=== PATIENT | female | born 1950 | race Caucasian/White ===

== ENCOUNTER 2019-11-26 01:06 | Observation (INO) | payer MEDICARE, MEDICAID, SELFPAY ==
[2019-11-26] VITALS (21 sets, daily range): BP systolic 77–146; BP diastolic 34–92; PULSE 50–71; RESP 13–27; TEMP 36.1–36.5; O2SAT 93–99; BMI 47.2
--- NOTE | 2019-11-26 01:21 | ED_ITS ---
Entered by Evie Howard, acting as scribe for Raúl Bolden DO HPI - URI/Sore Throat General: Chief Complaint: Nausea/Vomiting/Diarrhea Stated Complaint: FLU SYMPTOMS/HEART PT Time Seen by Provider: 11/26/19 01:17 Source: patient and family Mode of arrival: wheelchair Limitations: no limitations History of Present Illness: HPI Narrative: 69 yo f came to the er pov with family for neck pain, headache, nausea,cough, fever and vomiting. Onset was 2300 last night. Family states that she has an active cardiac history. Pt was supposed to be in [place] in the morning to make sure that that one of the valves in her heart is leaking. This is not the first time that this has happened per family. MD elicited complaint: fever, cough and sore throat Pertinent past history: other Onset (ago): day(s) (2300 last night) Consistency: constant Severity: moderate Able to tolerate fluids by mouth: No Exacerbating factors: exertion Relieving factors: nothing Context: sick contacts Associated symptoms: Reports cough, fever(s), headache(s), nausea, short of breath and vomiting; Deny diarrhea Treatments prior to arrival: none Review of Systems General: Reports: other (negative unless marked ) Const: Reports: fever Eyes: Denies: change in vision Resp: Reports: shortness of breath and productive cough GI: Reports: nausea and vomiting; Denies: diarrhea : Denies: flank pain Musc: Reports: neck pain Skin/Breast: Denies: rash Neuro: Reports: headache PFSH ED PFSH: Medical History Arrhythmia ASCVD (arteriosclerotic cardiovascular disease) Eczema Enrolled in chronic care management Fibrocystic breast Hyperlipidemia Hypertension Iron deficiency anemia Unable to read or write Surgical History History of mitral valve repair Social History Smoking and tobacco status: former smoker Quit status (tobacco): has quit using tobacco Second hand smoke exposure: No Smoking risk assessment/counseling performed?: No Physical Exam Const: COMMON NORMALS: no apparent distress GENERAL APPEARANCE: cooperative ORIENTATION/CONSCIOUSNESS: Yes awake, Yes oriented to person, Yes oriented to place and Yes oriented to time HENMT: COMMON NORMALS: normocephalic, head/scalp atraumatic, hearing grossly normal bilaterally, external ears normal, EAC's normal, TM's normal bilaterally, nasal mucous membranes and turbinates normal, moist oral mucous membranes and oropharynx normal HEAD & SCALP: normocephalic and atraumatic NOSE: nasal mucous membranes and turbinates normal EXTERNAL EAR: Yes external ears normal EXTERNAL AUDITORY CANAL: EAC's normal TYMPANIC MEMBRANE: TM's normal bilaterally Eye: COMMON NORMALS: PERRL, EOMs intact bilaterally, conjunctivae normal and no scleral icterus CONJUNCTIVA: Yes conjunctivae normal PUPIL: Yes PERRL Neck/C-Spine: COMMON NORMALS: full ROM, no lymphadenopathy, supple and no JVD Lymph: LYMPHATIC: no lymphadenopathy noted and no lymphedema noted Resp: EFFORT & INSPECTION: Yes symmetric chest movement, Yes tachypneic and Yes labored AUSCULTATION: rales on the right in the lower lung clemente and on the left in the lower lung clemente Cardio: COMMON NORMALS: no JVD, regular rate, regular rhythm and no murmurs RATE: regular rate RHYTHM: regular rhythm GI: COMMON NORMALS: soft to palpation and no hepatosplenomegaly AUSCULTATION: Yes normoactive bowel sounds PALPATION: Yes soft, No tender, No guarding and Yes no hepatosplenomegaly Extremity: COMMON NORMALS: normal to inspection, normal capillary refill, no clubbing, cyanosis or edema and no calf tenderness GENERAL: Yes edema (Trace to 1+) Neuro: SENSORIUM/ORIENTATION: Yes oriented to person, Yes oriented to place and Yes oriented to time Skin: COMMON NORMALS: no rashes or lesions noted GENERAL SKIN EXAM: no rashes or lesions noted Course ED course: Patient in acute congestive heart failure given diuretics. Recommend that she be admitted for diuresis medication adjustment. Patient has been instructed to drink increased fluid in preparation for a cardiology exam inspection he was to have a bubble study in the event she is probably overdone it she is hyponatremic and fluid overload. Vital Signs: Vital signs: Vital Signs Temperature 97.6 F 11/27/19 17:12 Pulse Rate 60 11/27/19 17:12 Respiratory Rate 18 11/27/19 17:12 Blood Pressure 106/67 11/27/19 17:12 Pulse Oximetry 98 11/27/19 17:12 MDM - URI/Sore Throat Lab Data: Labs: Lab Results 11/26/19 11/26/19 11/26/19 Range/Units 01:39 01:39 01:39 WBC 5.6 (4.0-10.0) 10^3/ uL RBC 3.75 L (4.1-5.3) 10^6/u L Hgb 10.3 L (11.5-15.3) g/dL Hct 31.8 L (37.0-47.0) % MCV 84.8 (81-99) fL MCH 27.5 L (28.0-34.0) pg MCHC 32.4 (30.0-36.0) g/dL RDW 13.4 (12.1-15.1) % Plt Count 141 (130-400) 10^3/c mm MPV 11.4 H (7.4-10.4) fL Neut % (Auto) 78.7 % Lymph % (Auto) 11.5 % [place] % (Auto) 6.1 % Eos % (Auto) 3.1 % Baso % (Auto) 0.4 % Neut # (Auto) 4.4 (1.8-7.7) 10^3/u L Lymph # (Auto) 0.6 L (0.8-4.8) 10^3/u L [place]elf[place] # (Auto) 0.3 (0.2-0.9) 10^3/u L Eos # (Auto) 0.2 (0.0-0.8) 10^3/u L Baso # (Auto) 0.0 (0.0-0.1) 10^3/u L Nucleated RBC % (a uto) 0 % Nucleated RBCs # 0.0 /100WBC Sodium 123 L (136-145) mmol/L Potassium 4.3 (3.5-5.1) mmol/L Chloride 87 L (98-107) mmol/L Carbon Dioxide 29 (22-29) mmol/L Anion Gap 11.3 (5-19) BUN 11 (8-23) mg/dL Creatinine 0.8 (0.5-0.9) mg/dL GFR Calculation 71.3 L (90-130) mL/min Glucose 128 H (65-115) mg/dL Calculated Osmolal ity 254 L (285-295) mOsm/k g Calcium 9.5 (8.5-10.5) mg/dL Total Bilirubin 0.7 (0.15-1.2) mg/dL AST 21 (0-32) U/L ALT 12 (0-33) U/L Alkaline Phosphata se 67 (35-105) IU/L Troponin T Baselin e 12 H (0-10) ng/mL NT-Pro-B Natriuret Pep 1876 H (0-125) pg/mL Total Protein 6.5 L (6.6-8.7) g/dL Albumin 4.1 (3.5-5.2) g/dL Globulin 2.4 (1.3-4.6) g/dL Lipase 19 (13-60) U/L Influenza Type A A g (Negative) POC Influenza B Ag (Negative) 11/26/19 Range/Units 02:15 WBC (4.0-10.0) 10^3/ uL RBC (4.1-5.3) 10^6/u L Hgb (11.5-15.3) g/dL Hct (37.0-47.0) % MCV (81-99) fL MCH (28.0-34.0) pg MCHC (30.0-36.0) g/dL RDW (12.1-15.1) % Plt Count (130-400) 10^3/c mm MPV (7.4-10.4) fL Neut % (Auto) % Lymph % (Auto) % [place] % (Auto) % Eos % (Auto) % Baso % (Auto) % Neut # (Auto) (1.8-7.7) 10^3/u L Lymph # (Auto) (0.8-4.8) 10^3/u L Telf[place] # (Auto) (0.2-0.9) 10^3/u L Eos # (Auto) (0.0-0.8) 10^3/u L Baso # (Auto) (0.0-0.1) 10^3/u L Nucleated RBC % (a uto) % Nucleated RBCs # /100WBC Sodium (136-145) mmol/L Potassium (3.5-5.1) mmol/L Chloride (98-107) mmol/L Carbon Dioxide (22-29) mmol/L Anion Gap (5-19) BUN (8-23) mg/dL Creatinine (0.5-0.9) mg/dL GFR Calculation (90-130) mL/min Glucose (65-115) mg/dL Calculated Osmolal ity (285-295) mOsm/k g Calcium (8.5-10.5) mg/dL Total Bilirubin (0.15-1.2) mg/dL AST (0-32) U/L ALT (0-33) U/L Alkaline Phosphata se (35-105) IU/L Troponin T Baselin e (0-10) ng/mL NT-Pro-B Natriuret Pep (0-125) pg/mL Total Protein (6.6-8.7) g/dL Albumin (3.5-5.2) g/dL Globulin (1.3-4.6) g/dL Lipase (13-60) U/L Influenza Type A A g Negative (Negative) POC Influenza B Ag Negative (Negative) Discharge Plan Discharge Patient Disposition: Admitted As Inpatient Admit Provider: Jada Lala Clinical Impression: Hyponatremia with decreased serum osmolality, COPD (chronic obstructive pulmonary disease), Congestive heart failure Condition: Stable Discharge Orders: Discharge Order (Routine); Ordered 11/27/19 Ordered By: Spike Tinajero Referrals: Mikel Pete MD [Referring] - 12/17/19 12:30 pm Discharge Diet: Cardiac Discharge Activity: Resume usual activity Patient Instructions: Hyponatremia (DC) Additional Instructions: -Continue fluid restrictions to a less than 1 L/day -If you have lightheadedness, dizziness, headache, neck pain, muscle cramps come back to the emergency room -Follow-up with primary care provider on Saturday for repeat blood work -Continue to hold lisinopril hydrochlorothiazide until seen by primary care Interventions: ED Discharge Assessment Last Done: 11/26/19 04:26 Discharge Date/Time: 11/26/19 03:55 Coding Level of Care Code ED Subacute Nurse for Chg Fwd Exam Comprehensive The documentation recorded by the Lee novoa Stephanie Lyn, accurately reflects the service I personally performed and the decisions made by Yuan martinez Curtis L, DO Nov 26, 2019 01:06
--- NOTE | 2019-11-26 01:26 | XR_ITS ---
WS: [id number] XR chest 1V portable [id number] REASON FOR EXAM: dyspnea/cough FINDINGS: The cardiac silhouette is not enlarged. There is evidence of coronary bypass changes and mi tral valve replacement. A reticular pattern is seen in both lung clemente. The pattern is similar to the previous exam exposed February 06, 2019. XR/XR chest 1V portable [id number] IMPRESSION: Coronary bypass changes and mitral valve replacement.
[2019-11-26] MEDS: ondansetron 2 mg/ML SDV 2 mL 4 MG IVP (01:55)
[2019-11-26 02:04] LABS: Basophils % 0.4 %; Eosinophils # 0.2 10^3/uL (0.0-0.8); Eosinophils % 3.1 %; Hematocrit 31.8 % (37.0-47.0); Hemoglobin 10.3 g/dL (11.5-15.3); Lymphocytes # 0.6 10^3/uL (0.8-4.8); Lymphocytes % 11.5 %; Mean Corpuscular HGB Conc 32.4 g/dL (30.0-36.0); Mean Corpuscular Hemoglobin 27.5 pg (28.0-34.0); Mean Corpuscular Volume 84.8 fL (81-99); Mean Platelet Volume 11.4 fL (7.4-10.4); Monocytes # 0.3 10^3/uL (0.2-0.9); Monocytes % 6.1 %; Neutrophils # 4.4 10^3/uL (1.8-7.7); Neutrophils % 78.7 %; Nucleated Red Blood Cells % 0 %; Platelet Count 141 10^3/cmm (130-400); Red Blood Count 3.75 10^6/uL (4.1-5.3); Red Cell Distribution Width 13.4 % (12.1-15.1); White Blood Count 5.6 10^3/uL (4.0-10.0)
[2019-11-26 02:05] LABS: Troponin(5th) Baseline 12 ng/mL (0-10)
[2019-11-26 02:13] LABS: Alanine Aminotransferase 12 U/L (0-33); Albumin Level 4.1 g/dL (3.5-5.2); Alkaline Phosphatase 67 IU/L (35-105); Anion Gap 11.3 (5-19); Aspartate Amino Transferase 21 U/L (0-32); Blood Urea Nitrogen 11 mg/dL (8-23); Calcium 9.5 mg/dL (8.5-10.5); Carbon Dioxide 29 mmol/L (22-29); Chloride 87 mmol/L (98-107); Globulin 2.4 g/dL (1.3-4.6); Glomerular Filtration Rate 71.3 mL/min (90-130); Glucose 128 mg/dL (65-115); Lipase 19 U/L (13-60); NT Pro B Type Natriuretic Pept 1876 pg/mL (0-125); Osmolality Calculated 254 mOsm/kg (285-295); Potassium 4.3 mmol/L (3.5-5.1); Sodium 123 mmol/L (136-145); Total Bilirubin 0.7 mg/dL (0.15-1.2); Total Protein 6.5 g/dL (6.6-8.7)
--- NOTE | 2019-11-26 02:41 | CTR_ITS ---
PROCEDURE INFORMATION: Exam: CT Head Without Contrast Exam date and time: 11/26/2019 2:42 AM Age: 69 years old Clinical indication: Pain; Headache not specified TECHNIQUE: Imaging protocol: Computed tomography of the head without contrast. Total DLP: 757.87 mGy-cm Radiation optimization: All CT scans at this facility use at least one of these dose optimization techniques: automated exposure control; mA and/or kV adjustment per patient size (includes targeted exams where dose is matched to clinical indication); or iterative reconstruction. COMPARISON: No relevant prior studies available. FINDINGS: Brain: Mild left occipital encephalomalacia. No intracranial hemorrhage or edema. Ventricles: No hydrocephalus. Bones/joints: No acute fracture. Sinuses: Unremarkable. No acute sinusitis. Mastoid air cells: No significant mastoid effusion. Soft tissues: Unremarkable. Vasculature: Vascular calcifications. CT/CT head wo con* [id number] IMPRESSION: No acute intracranial abnormality. Radiation Dose CTDIVOL = (mGy): DLP = 757.87 (mGy-cm)
[2019-11-26] MEDS: FUROsemide 10 mg/mL SDV 10mL 60 MG IVP (02:55)
[2019-11-26 03:06] LABS: Influenza A by IFA Negative (Negative); Influenza B by IFA Negative (Negative)
--- NOTE | 2019-11-26 03:12 | PC.NURSE ---
Assessment reviewed and verified
[2019-11-26] MEDS: metoclopramide 5 mg/mL SDV 2 mL 10 MG IVP (03:45)
[2019-11-26 03:52] LABS: Troponin 5 2HR 11.66 ng/mL (0-10)
[2019-11-26 04:14] LABS: Troponin 5 2HR Delta -0.34 ABS# (0-10)
--- NOTE | 2019-11-26 04:44 | P.HP_ITS ---
Providers/Chief Complaint Admitting Physician: Jada Lala MD Primary Care Provider: Berry Laguna DO Chief Complaint: FLU SYMPTOMS/HEART PT History of Present Illness Dariana Gillespie is a 69 year old female with a past medical history of CAD, history of what appears to be mitral valve repair after rupture in 2010, hyperlipidemia, hypertension who presented from home today with chief complaints of headache neck pain and vomiting. History is obtained by talking to the pat ient and her son to fill in the gaps in her memory. 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 Pete at [facility] and was planned to undergo radiological testing prior to the procedure at [facility] today. In anticipation of the procedure she was asked to drink at least half a gallon of water between 6 PM for the next morning. The patient's son however states that at a baseline patient tends to drink a lot of water, estimated at least a gallon a day, sometimes even more. Today she drank her usual intake plus a gallon in about 2 hours. At around 10:30 PM last evening she called her son complaining of intense neck and head headache. Her son was concerned that her symptoms sounded similar to her mitral valve rupture that occurred in 2010 and brought her into the emergency room. Upon evaluation here she did receive 60 mg of IV Lasix upon arrival. She currently denies any complaints of shortness of breath or chest pain to me. She does still complain of a headache and neck pain. Nausea is resolved. Lab testing was significant for a sodium of 123, her previously known baseline is around 140. At time of my assessment she is somewhat slow to respond to questions and does answer questions out of context. It is unclear if this is her baseline. The son states that she does have some gaps in memory but today she seemed a little different . Patient reports mild photophobia There is no history of head injury. No history of malignancy. Her glucose levels are within range. Review of Systems General: Reports: 10 or more systems reviewed and unremarkable except in HPI and below Const: Denies: fever, chills or body aches Eyes: Reports: photophobia; Denies: change in vision or blurry vision ENMT: Reports: hoarseness; Denies: throat pain, enlarged tonsils, painful swallowing or nasal congestion Card: Denies: chest pain, palpitations, irregular heart rhythm, edema, swelling of feet/ankles, lightheadedness, pre-syncope, shortness of breath on exertion or shortness of breath when lying down Resp: Denies: shortness of breath, productive cough, non-productive cough, wheezing, stridor, pain on inspiration, change in phlegm color, coughing up blood or chest congestion GI: Denies: abdominal pain, nausea, vomiting, vomiting blood, coffee grounds in vomit, difficulty swallowing, heartburn/indigestion, diarrhea, constipation, cramping, change in stool character, blood in stool or black tarry stool : Denies: flank pain, difficulty urinating, painful urination, urinary frequency, urinary urgency, urinary hesitancy or blood in urine Musc: Denies: neck pain, back pain, extremity pain, joint swelling, joint warmth or deformity Neuro: Reports: headache and behavioral changes; Denies: numbness in extremities, weakness in extremities, changes in sensation, difficulty walking, frequent falls, dizziness, vertigo, slurred speech or seizure-like activity Psych: Denies: anxiety, depression, suicidal ideation or homicidal ideation Endo: Denies: excessive urination, excessive thirst, tired all the time, cold intolerance or hot flashes Chris/Lymph: Denies: easy bruising or easy bleeding Medications/Allergies Home Medications Medication Instructions Recorded Confirmed Last Taken Type carvedilol 11/26/19 11/25/19 History evolocumab [Repatha SureClick] mg SUBCUT 11/26/19 11/23/19 History triamcinolone acetonide 1 applic TOPICAL BID 11/26/19 11/26/19 Unknown History Allergies Allergy/AdvReac Type Severity Reaction Status Date / Time codeine Allergy Intermediate Irregular Verified 11/09/19 16:31 heart rate, Hallucinations Penicillins Allergy Intermediate hives Verified 11/09/19 16:31 nausea Vomiting azithromycin Allergy Unknown Unknown Verified 11/09/19 16:31 PFSH Acute PFSH: Medical History Arrhythmia ASCVD (arteriosclerotic cardiovascular disease) Eczema Enrolled in chronic care management Fibrocystic breast Hyperlipidemia Hypertension Iron deficiency anemia Unable to read or write Surgical History History of mitral valve repair Social History Smoking and tobacco status: former smoker Quit status (tobacco): has quit using tobacco Second hand smoke exposure: No Smoking risk assessment/counseling performed?: No Vitals/I&O/Wt Last Vital Signs Temp 97.0 F L 11/26/19 04:22 Pulse 59 L 11/26/19 04:30 Resp 16 11/26/19 04:30 BP 115/59 11/26/19 04:30 Pulse Ox 95 11/26/19 04:30 Weight last 48 hrs Weight 124.738 kg Physical Exam Narrative: EXAM NARRATIVE: GEN: Awake, alert and oriented, no acute distress. Answers most wuestions appropriately, however intermittently answers out of context. HEENT: Hesitant to open her eyes stating the light bothers her, however once op ened, she is able to keep them open. CVS: S1S2 N RS: CTA B/L Abd: Soft, nt/nd , bs+ ICU REGISTERED NURSE: no focal neuro motor deficits Data : 11/26/19 05:15 11/26/19 01:39 Other data: [place] [address] CT Scan Report Signed Patient: Dariana Gillespie #: [id number] : [id number]#:[id number] Age/Sex: 69 / FADM Date: 11/26/19 Loc: ICURoom/Bed: [place] [address]: Jada Lala MD Ordering Provider/Ordering MD: Raúl Bolden DO Date of Service: 11/26/19 Procedure(s): CT head wo con* [id number] Accession Number(s): [id number] Report Number: [id number] PROCEDURE INFORMATION: Exam: CT Head Without Contrast Exam date and time: 11/26/2019 2:42 AM Age: 69 years old Clinical indication: Pain; Headache not specified TECHNIQUE: Imaging protocol: Computed tomography of the head without contrast. Total DLP: 757.87 mGy-cm Radiation optimization: All CT scans at this facility use at least one of these dose optimization techniques: automated exposure control; mA and/or kV adjustment per patient size (includes targeted exams where dose is matched to clinical indication); or iterative reconstruction. COMPARISON: No relevant prior studies available. FINDINGS: Brain: Mild left occipital encephalomalacia. No intracranial hemorrhage or edema. Ventricles: No hydrocephalus. Bones/joints: No acute fracture. Sinuses: Unremarkable. No acute sinusitis. Mastoid air cells: No significant mastoid effusion. Soft tissues: Unremarkable. Vasculature: Vascular calcifications. CT/CT head wo con* [id number] IMPRESSION: No acute intracranial abnormality. Radiation Dose CTDIVOL = (mGy): DLP = 757.87 (mGy-cm) A&P Assessment and plan (1) Hyponatremia with decreased serum osmolality: Status: Acute Code(s): E87.1 - Hypo-osmolality and hyponatremia Additional A&P Information admit to ICU # Moderate hyponatremia with mild to moderate symptoms which may be attributable to hyponatremia including any nausea vomiting forgetfulness and muscle cramps. It is unclear as to the chronicity of development of hyponatremia. Based on history may be related to polydipsia and drinking excessive amounts of free water every day, but there does appear to be some component of more acute worsening today evening . Will start 3% hypertonic saline slowly at 15ml/hr with sodium checks every hour. Goal is to correct by 4 to 6 mEq every day. Calculated serum osmolality is at 254. We will send out serum osmolality, urine osmolality and urine sodium to a certain cause of hyponatremia. Hold thiazide diuretics for now. Check TSH and random cortisol. #History of mitral valve repair, planned for replacement at [facility] in the upcoming days. Continue ASA 325mg Carvedilol dose needs to be confirmed prior to entry. Currently Hr 56-58, will hold off from ordering Lisnipril on hold given BP 90/60 Hold HCTZ given hyponatremia Clinically picture does not seem consistent with mitral valve rupture as patient denies chest pain, breathing comfortably, no acute distress. Dvt ppx: heparin Full code Attestations Medical Necessity Statement*: anticpate > 2midnight admission for management of hyponatremia Coding Level of Care Code Acute L D Rn for Simi Baldears Diagnoses Hyponatremia with decreased serum osmolality E87.1
[2019-11-26] MEDS: sodium chloride 3% 500 ML 15 ML IV (05:44)
[2019-11-26 05:48] LABS: Basophils % 0.2 %; Eosinophils # 0.1 10^3/uL (0.0-0.8); Eosinophils % 1.6 %; Hematocrit 31.3 % (37.0-47.0); Hemoglobin 10.5 g/dL (11.5-15.3); Lymphocytes # 0.6 10^3/uL (0.8-4.8); Lymphocytes % 10.8 %; Mean Corpuscular HGB Conc 33.5 g/dL (30.0-36.0); Mean Corpuscular Hemoglobin 28.2 pg (28.0-34.0); Mean Corpuscular Volume 83.9 fL (81-99); Mean Platelet Volume 11.2 fL (7.4-10.4); Monocytes # 0.4 10^3/uL (0.2-0.9); Monocytes % 6.4 %; Neutrophils # 4.6 10^3/uL (1.8-7.7); Neutrophils % 80.7 %; Nucleated Red Blood Cells % 0 %; Platelet Count 146 10^3/cmm (130-400); Red Blood Count 3.73 10^6/uL (4.1-5.3); Red Cell Distribution Width 13.3 % (12.1-15.1); White Blood Count 5.8 10^3/uL (4.0-10.0)
[2019-11-26 06:18] LABS: Anion Gap 15.7 (5-19); Blood Urea Nitrogen 12 mg/dL (8-23); Calcium 9.9 mg/dL (8.5-10.5); Carbon Dioxide 27 mmol/L (22-29); Chloride 86 mmol/L (98-107); Glomerular Filtration Rate 62.3 mL/min (90-130); Glucose 135 mg/dL (65-115); Osmolality Calculated 258 mOsm/kg (285-295); Potassium 3.7 mmol/L (3.5-5.1); Sodium 125 mmol/L (136-145)
[2019-11-26 06:28] LABS: Chol HDL Ratio 2.25 mg/dL (0.0-4.40); Cholesterol 117 mg/dL (0-200); HDL Cholesterol 52 mg/dL (60-100); LDL Cholesterol Calculated 47 mg/dL (50-129); Thyroid Stimulating Hormone 2.22 uIU/mL (0.27-4.20); Triglycerides 89 mg/dL (0-150)
[2019-11-26] MEDS: heparin 5,000 unit/mL INJ 1 mL 5000 UNIT SUBCUT ×2 (06:28→18:13)
[2019-11-26 06:31] LABS: Cortisol Random 14.14 mcg/dL (2.47-19.5)
[2019-11-26 07:04] LABS: Urine Random Sodium 75 mmol/L
[2019-11-26 07:08] LABS: Sodium 127 mmol/L (136-145)
--- NOTE | 2019-11-26 07:26 | ECG_ITS ---
Measurements Intervals Rand Rate: 53 P: 104 ID: [id number] QRS: -6 QRSD: 100 T: 5 QT: 525 QTc: 495 SINUS BRADYCARDIA PROLONGED QT INTERVAL No previous ECG available for comparison Electronically Signed On 11-26-2019 12:44:59 CDT by Shivani Torrez [email or web address]
[2019-11-26 07:59] LABS: Sodium 128 mmol/L (136-145)
[2019-11-26 08:00] LABS: Troponin 5 6HR 10.72 ng/mL (0-10)
[2019-11-26 08:01] LABS: Troponin 5 6HR Delta -1.28 ng/L (0-12)
[2019-11-26] MEDS: morphine 4 mg/mL SDV 1 mL 1 MG IVP (08:01)
[2019-11-26] MEDS: cyclobenzaprine 10 mg Tablet PO (09:00)
[2019-11-26] MEDS: aspirin 325 mg Tablet PO (09:00)
[2019-11-26] MEDS: LORazepam 2 mg/mL INJ 1 mL IVP (09:00)
[2019-11-26 09:04] LABS: Sodium 129 mmol/L (136-145)
[2019-11-26 09:43] LABS: Sodium 128 mmol/L (136-145)
[2019-11-26 10:28] LABS: Sodium 130 mmol/L (136-145)
[2019-11-26 11:35] LABS: Sodium 127 mmol/L (136-145)
[2019-11-26 12:36] LABS: Sodium 131 mmol/L (136-145)
--- NOTE | 2019-11-26 13:52 | PM.PN ---
Subjective Subjective: Interval history: This this morning patient was alert oriented x3, states that she is only here in the hospital because her son wanted to her to be here, no fevers, no chills, states that she was set to have a stent placement for her aortic valve, they told her to drink a gallon of water a day, she states that she already drinks up to 3 L of water a day at baseline, states that she is been drink consuming a lot of water During my examination, patient had severe muscle spasms, of bilateral thighs, bilateral lower extremities, was in severe pain, did not improve with inverse myotatic reflex, patient was stood out of bed, her symptoms abated, she was put back into bed, she was given muscle relaxers, and improved Currently patient sodium levels 131, she is sleeping as she received Ativan for agitation, Vitals/I&O/Wt Last Vital Signs Temp 97.0 F L 11/26/19 04:22 Pulse 53 L 11/26/19 12:00 Resp 13 11/26/19 12:00 BP 91/37 11/26/19 12:00 Pulse Ox 94 11/26/19 12:00 11/25/19 11/26/19 11/26/19 22:59 06:59 14:59 Intake Total 0 / 0 156.5 / 156.5 Output Total 950 / 950 450 / 450 Balance -950 / -950 -293.5 / -293.5 Weight last 48 hrs Weight 124.738 kg Physical Exam Const: COMMON NORMALS: no apparent distress and oriented x3 HENMT: COMMON NORMALS: normocephalic HEAD & SCALP: normocephalic Neck/C-Spine: COMMON NORMALS: no JVD Resp: COMMON NORMALS: normal respiratory effort, no retractions, no use of accessory muscles and clear to auscultation bilaterally AUSCULTATION: clear to auscultation bilaterally Cardio: COMMON NORMALS: no JVD, regular rate, regular rhythm, S1 normal heart sound and S2 normal heart sound RATE: regular rate RHYTHM: regular rhythm HEART SOUNDS: S1 normal and S2 normal GI: COMMON NORMALS: normal to inspection, nondistended, normoactive bowel sounds, soft to palpation, non-tender, no hepatosplenomegaly, no masses and no bruits PALPATION: Yes soft and Yes no hepatosplenomegaly Extremity: COMMON NORMALS: normal capillary refill, no clubbing, cyanosis or edema, no calf tenderness and no pedal edema Neuro: COMMON NORMALS: oriented x3 Psych: COMMON NORMALS: mental status grossly normal Data : 11/26/19 05:15 11/26/19 12:03 A&P Assessment and plan (1) Hyponatremia with decreased serum osmolality: Status: Acute Code(s): E87.1 - Hypo-osmolality and hyponatremia Additional A&P Information Will de-escalate out of ICU U # Moderate hyponatremia with mild to moderate symptoms which may be attributable to hyponatremia including any nausea vomiting forgetfulness and muscle cramps. Discontinue hypertonic saline, fluid restrictions, last sodium level 131 Hold thiazide diuretics for now. Check TSH and random cortisol. #History of mitral valve repair, planned for replacement at [place] in today by Dr. Pete, will notify Continue ASA 325mg Carvedilol dose needs to be confirmed prior to entry. Currently Hr 56-58, will hold off from ordering Lisnipril on hold given BP 90/60 Hold HCTZ given hyponatremia Dvt ppx: heparin Full code Attestations Medical Necessity Statement*: Patient requires continued hospitalization for hyponatremia Coding Level of Care Code Acute Tow Car Driver for Simi Balderas Diagnoses Hyponatremia with decreased serum osmolality E87.1
[2019-11-26 14:43] LABS: Sodium 130 mmol/L (136-145)
[2019-11-26 18:10] LABS: Sodium 131 mmol/L (136-145)
[2019-11-26 21:02] LABS: Sodium 132 mmol/L (136-145)
[2019-11-27] VITALS (12 sets, daily range): BP systolic 97–125; BP diastolic 51–71; PULSE 57–83; RESP 15–25; TEMP 36.4–36.8; O2SAT 92–98
[2019-11-27 00:50] LABS: Sodium 132 mmol/L (136-145)
[2019-11-27 04:45] LABS: Basophils % 0.6 %; Eosinophils # 0.1 10^3/uL (0.0-0.8); Eosinophils % 3.8 %; Hematocrit 31.4 % (37.0-47.0); Hemoglobin 10.4 g/dL (11.5-15.3); Lymphocytes # 0.8 10^3/uL (0.8-4.8); Lymphocytes % 23.5 %; Mean Corpuscular HGB Conc 33.1 g/dL (30.0-36.0); Mean Corpuscular Volume 84.6 fL (81-99); Mean Platelet Volume 11.6 fL (7.4-10.4); Monocytes # 0.4 10^3/uL (0.2-0.9); Neutrophils # 2.1 10^3/uL (1.8-7.7); Neutrophils % 60.8 %; Nucleated Red Blood Cells % 0 %; Platelet Count 133 10^3/cmm (130-400); Red Blood Count 3.71 10^6/uL (4.1-5.3); Red Cell Distribution Width 13.4 % (12.1-15.1); White Blood Count 3.4 10^3/uL (4.0-10.0)
[2019-11-27 05:02] LABS: Alanine Aminotransferase 9 U/L (0-33); Albumin Level 3.8 g/dL (3.5-5.2); Alkaline Phosphatase 62 IU/L (35-105); Anion Gap 11.4 (5-19); Aspartate Amino Transferase 20 U/L (0-32); Blood Urea Nitrogen 8 mg/dL (8-23); Calcium 9.3 mg/dL (8.5-10.5); Carbon Dioxide 33 mmol/L (22-29); Chloride 92 mmol/L (98-107); Globulin 2.6 g/dL (1.3-4.6); Glomerular Filtration Rate 71.3 mL/min (90-130); Glucose 93 mg/dL (65-115); Magnesium 2.3 mg/dL (1.7-2.3); Osmolality Calculated 272 mOsm/kg (285-295); Phosphorus 3.3 mg/dL (2.5-4.5); Potassium 3.4 mmol/L (3.5-5.1); Sodium 133 mmol/L (136-145); Total Bilirubin 0.5 mg/dL (0.15-1.2); Total Protein 6.4 g/dL (6.6-8.7)
[2019-11-27] MEDS: heparin 5,000 unit/mL INJ 1 mL 5000 UNIT SUBCUT (06:09)
[2019-11-27] MEDS: aspirin 325 mg Tablet PO (09:55)
--- NOTE | 2019-11-27 11:15 | PM.DCS ---
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 Patient is being evaluated for mitral valve replacement with her physical security specialist in [facility], she was told by the physical security specialist to drink at least half a gallon of water 24 hours before her procedure, patient states that she already drinks more than a gallon of water a day. In the emergency room patient was found to have hyponatremia, sodium of 123, received Lasix, was put on hypertonic saline, patient sodium corrected to 128. Hypertonic saline was stopped, patient was started on fluid restrictions to less than 1000 cc/day, her sodium improved to 133. Patient remained asymptomatic, no more muscle cramps, was ambulating around her room, taking a shower, had no significant complaints. Her sodium was rechecked in the afternoon and it was 133. Patient was instructed that she should restrict her fluid intake to less than 1000 cc/day, I will continue to hold her lisinopril and hydrochlorothiazide until blood work can be done on Saturday. Patient was advised to follow-up with Dr. Pete early next week. Physical Exam Const: COMMON NORMALS: no apparent distress and oriented x3 HENMT: COMMON NORMALS: normocephalic HEAD & SCALP: normocephalic Neck/C-Spine: COMMON NORMALS: no JVD Resp: COMMON NORMALS: normal respiratory effort, no retractions, no use of accessory muscles and clear to auscultation bilaterally AUSCULTATION: clear to auscultation bilaterally Cardio: COMMON NORMALS: no JVD, regular rate, regular rhythm, S1 normal heart sound and S2 normal heart sound RATE: regular rate RHYTHM: regular rhythm HEART SOUNDS: S1 normal and S2 normal GI: COMMON NORMALS: normal to inspection, nondistended, normoactive bowel sounds, soft to palpation, non-tender, no hepatosplenomegaly, no masses and no bruits PALPATION: Yes soft and Yes no hepatosplenomegaly Extremity: COMMON NORMALS: normal capillary refill, no clubbing, cyanosis or edema, no calf tenderness and no pedal edema Neuro: COMMON NORMALS: oriented x3 Psych: COMMON NORMALS: mental status grossly normal Discharge Data Data Completed and Pending: Completed Studies During Hospitalization Category Date Time Status CT head wo con* [id number] Stat Cat Scan 11/26/19 02:41 Completed XR chest 1V jenn ble [id number] Stat Exams 11/26/19 01:26 Completed Pending at discharge Category Date Time Status Complete Blood Co unt w/Auto AM LABS Lab 11/28/19 04:00 Ordered Complete Blood Co unt w/Auto AM LABS Lab 11/29/19 04:00 Ordered Comprehensive Met abolic Panel AM LA BS Lab 11/28/19 04:00 Ordered Comprehensive Met abolic Panel AM LA BS Lab 11/29/19 04:00 Ordered Comprehensive Met abolic Panel Stat Lab 11/27/19 15:00 Ordered Magnesium AM LABS Lab 11/28/19 04:00 Ordered Magnesium AM LABS Lab 11/29/19 04:00 Ordered Osmolality Serum Routine Lab 11/26/19 05:15 Received Osmolality Urine Routine Lab 11/26/19 05:19 Received Phosphorus AM LAB S Lab 11/28/19 04:00 Ordered Phosphorus AM LAB S Lab 11/29/19 04:00 Ordered Labs from last 24 hours 11/27/19 11/27/19 11/27/19 04:17 04:17 00:28 WBC 3.4 L RBC 3.71 L Hgb 10.4 L Hct 31.4 L MCV 84.6 MCH 28.0 MCHC 33.1 RDW 13.4 Plt Count 133 MPV 11.6 H Neut % (Auto) 60.8 Lymph % (Auto) 23.5 [place] % (Auto) 11.0 Eos % (Auto) 3.8 Baso % (Auto) 0.6 Neut # (Auto) 2.1 Lymph # (Auto) 0.8 [place] # (Auto) 0.4 Eos # (Auto) 0.1 Baso # (Auto) 0.0 Nucleated RBC % (a uto) 0 Nucleated RBCs # 0.0 Sodium 133 L 132 L Potassium 3.4 L Chloride 92 L Carbon Dioxide 33 H Anion Gap 11.4 BUN 8 Creatinine 0.8 GFR Calculation 71.3 L Glucose 93 Calculated Osmolal ity 272 L Calcium 9.3 Phosphorus 3.3 Magnesium 2.3 Total Bilirubin 0.5 AST 20 ALT 9 Alkaline Phosphata se 62 Total Protein 6.4 L Albumin 3.8 Globulin 2.6 11/26/19 11/26/19 11/26/19 20:40 17:22 13:22 WBC RBC Hgb Hct MCV MCH MCHC RDW Plt Count MPV Neut % (Auto) Lymph % (Auto) [place] % (Auto) Eos % (Auto) Baso % (Auto) Neut # (Auto) Lymph # (Auto) [place] # (Auto) Eos # (Auto) Baso # (Auto) Nucleated RBC % (a uto) Nucleated RBCs # Sodium 132 L 131 L 130 L Potassium Chloride Carbon Dioxide Anion Gap BUN Creatinine GFR Calculation Glucose Calculated Osmolal ity Calcium Phosphorus Magnesium Total Bilirubin AST ALT Alkaline Phosphata se Total Protein Albumin Globulin 11/26/19 11/26/19 12:03 11:11 WBC RBC Hgb Hct MCV MCH MCHC RDW Plt Count MPV Neut % (Auto) Lymph % (Auto) [place] % (Auto) Eos % (Auto) Baso % (Auto) Neut # (Auto) Lymph # (Auto) [place] # (Auto) Eos # (Auto) Baso # (Auto) Nucleated RBC % (a uto) Nucleated RBCs # Sodium 131 L 127 L Potassium Chloride Carbon Dioxide Anion Gap BUN Creatinine GFR Calculation Glucose Calculated Osmolal ity Calcium Phosphorus Magnesium Total Bilirubin AST ALT Alkaline Phosphata se Total Protein Albumin Globulin Vitals: Last Vital Signs Temp 98.3 F 11/27/19 10:22 Pulse 80 11/27/19 10:22 Resp 20 H 11/27/19 10:22 BP 125/71 11/27/19 10:22 Pulse Ox 96 11/27/19 10:22 Discharge Plan Discharge Patient Disposition: Home, Self-Care Condition: Stable Prescriptions: Continued cholecalciferol (vitamin D3) 400 unit capsule 400 unit PO BID RF: 0 cyanocobalamin (vitamin B-12) 1,000 mcg capsule 1,000 mcg PO DAILY RF: 0 magnesium oxide 250 mg magnesium tablet 250 mg PO DAILY RF: 0 multivitamin Tablet 1 tab PO DAILY RF: 0 nitroglycerin 0.4 mg tablet, sublingual 0.4 mg SUBLINGUAL Q5M PRN (Reason: chest pain) RF: 0 aspirin 325 mg tablet 325 mg PO DAILY RF: 0 Lactobacillus acidophilus [Acidophilus] Capsule 100 mmu cells PO DAILY RF: 0 ferrous sulfate 325 mg (65 mg iron) tablet 325 mg PO DAILY RF: 0 ezetimibe [Zetia] 10 mg tablet 10 mg PO DAILY RF: 0 lactulose 10 gram/15 mL (15 mL) solution 15 ml PO BID PRNRF: 0 triamcinolone acetonide 0.1 % cream 1 applic TOPICAL BID RF: 0 carvedilol 12.5 mg tablet RF: 0 Repatha SureClick 140 mg/mL pen injector SUBCUT RF: 0 Held lisinopril-hydrochlorothiazide 20-12.5 mg tablet 1 tab PO DAILY RF: 0 Hold Instructions: Resume on 12/08/19. Hold until seen by primary care Discontinued naproxen 500 mg tablet 500 mg PO BID PRNRF: 0 Discharge Orders: Discharge Order (Routine); Ordered 11/27/19 Ordered By: Spike Tinajero Other Ambulatory Orders: Comprehensive Metabolic Panel (Routine) Timeframe: 3 Days Facility: [facility] - Location: Lab - Main Lab Ordered By: Spike Tinajero Referrals: Mikel Pete MD [Referring] - 12/17/19 12:30 pm Discharge Diet: Cardiac Discharge Activity: Resume usual activity Patient Instructions: Hyponatremia (DC) Activity Restrictions/Additional Instructions: -Continue fluid restrictions to a less than 1 L/day -If you have lightheadedness, dizziness, headache, neck pain, muscle cramps come back to the emergency room -Follow-up with primary care provider on Saturday for repeat blood work -Continue to hold lisinopril hydrochlorothiazide until seen by primary care Discharge Attestations Time Spent in Discharge Care*: less than 30 min Quality Metrics Clinical Quality Measures During this hospital stay, did patient experience: None Coding Level of Care Code Acute Mental Health Aides Teacher for Chg Fwd Exam Comprehensive Diagnoses Hyponatremia with decreased serum osmolality E87.1
[2019-11-27 12:31] LABS: Osmolality Urine 191 mOsm/kg (50-1200)
[2019-11-27 12:31] LABS: Osmolality Serum 264 mOsm/kg (278-305)
[2019-11-27 14:58] LABS: Alanine Aminotransferase 12 U/L (0-33); Albumin Level 4.2 g/dL (3.5-5.2); Alkaline Phosphatase 66 IU/L (35-105); Anion Gap 14.7 (5-19); Aspartate Amino Transferase 22 U/L (0-32); Blood Urea Nitrogen 13 mg/dL (8-23); Calcium 9.8 mg/dL (8.5-10.5); Carbon Dioxide 31 mmol/L (22-29); Chloride 91 mmol/L (98-107); Globulin 2.6 g/dL (1.3-4.6); Glomerular Filtration Rate 49.4 mL/min (90-130); Glucose 107 mg/dL (65-115); Osmolality Calculated 273 mOsm/kg (285-295); Potassium 3.7 mmol/L (3.5-5.1); Sodium 133 mmol/L (136-145); Total Bilirubin 0.4 mg/dL (0.15-1.2); Total Protein 6.8 g/dL (6.6-8.7)
== END 2019-11-27 16:36 | disposition home or self-care (01) ==
LOC: ER 03:23 → ICU 03:37 → MEDSURG 11-27 11:27 → ICU 11-27 14:33
PROVIDERS: Admitting Provider Student in an Organized Health Care Education/Training Program; Emergency Provider Family Medicine; Family Provider Family Medicine; PCP Family Medicine; Visit Provider Family Medicine
DX: E87.1 Hypo-osmolality and hyponatremia (principal); I25.10 Atherosclerotic heart disease of native coronary artery without angina pectoris; Z95.2 Presence of prosthetic heart valve; E78.5 Hyperlipidemia, unspecified; Z87.891 Personal history of nicotine dependence; J44.9 Chronic obstructive pulmonary disease, unspecified; I11.0 Hypertensive heart disease with heart failure; I50.9 Heart failure, unspecified
CPT/HCPCS: 12345; 36415; 70450; 71045; 80048; 80053; 80061; 82533; 83690; 83735; 83880; 83930; 83935; 84100; 84295; 84300; 84443; 84484; 85025; 87804; 93005; 93010; 96360; 96361; 96372; 96374; 96375; 99282; 99285; G0378; J1644; J1940; J2060; J2270; J2405; J2765; J7131

== ENCOUNTER → 2019-12-01 10:07 | Outpatient (BNVA) | payer MEDICARE, MEDICAID, SELFPAY | PROVIDERS: Family Provider Family Medicine; PCP Family Medicine; Visit Provider Nurse Practitioner Family | DX: E87.1 Hypo-osmolality and hyponatremia (principal); R73.9 Hyperglycemia, unspecified; L23.9 Allergic contact dermatitis, unspecified cause | CPT/HCPCS: 80053 ==

== ENCOUNTER → 2019-12-22 11:34 | Outpatient (BNVA) | payer MEDICARE, MEDICAID, SELFPAY | PROVIDERS: Family Provider Family Medicine; PCP Family Medicine; Visit Provider Nurse Practitioner Family | DX: R73.09 Other abnormal glucose (principal); Z68.33 Body mass index [BMI] 33.0-33.9, adult; R06.02 Shortness of breath | CPT/HCPCS: 83036 ==

== ENCOUNTER → 2020-06-08 15:35 | Outpatient (BNVA) | payer MEDICARE, MEDICAID, SELFPAY | PROVIDERS: Family Provider Family Medicine; PCP Family Medicine; Visit Provider Nurse Practitioner Family | DX: Z79.01 Long term (current) use of anticoagulants (principal) | CPT/HCPCS: 36416; 85610 ==

== ENCOUNTER → 2020-06-20 08:54 | Outpatient (BNVA) | payer MEDICARE, MEDICAID, SELFPAY | PROVIDERS: Family Provider Family Medicine; PCP Family Medicine; Visit Provider Nurse Practitioner Family | DX: Z79.01 Long term (current) use of anticoagulants (principal) | CPT/HCPCS: 85610 ==

== ENCOUNTER → 2020-06-29 09:34 | Outpatient (BNVA) | payer MEDICARE, MEDICAID, SELFPAY | PROVIDERS: Family Provider Family Medicine; PCP Family Medicine; Visit Provider Internal Medicine Cardiovascular Disease | DX: I50.9 Heart failure, unspecified (principal) | CPT/HCPCS: 80048 ==

== ENCOUNTER → 2020-07-04 09:25 | Outpatient (BNVA) | payer MEDICARE, MEDICAID, SELFPAY | PROVIDERS: Family Provider Family Medicine; PCP Family Medicine; Visit Provider Nurse Practitioner Family | DX: I50.9 Heart failure, unspecified (principal) | CPT/HCPCS: 85610 ==

== ENCOUNTER → 2020-07-12 08:16 | Outpatient (BNVA) | payer MEDICARE, MEDICAID, SELFPAY | PROVIDERS: Family Provider Family Medicine; PCP Family Medicine; Visit Provider Family Medicine | DX: Z79.01 Long term (current) use of anticoagulants (principal) | CPT/HCPCS: 85610 ==

== ENCOUNTER → 2020-07-20 08:22 | Outpatient (BNVA) | payer MEDICARE, MEDICAID, SELFPAY | PROVIDERS: Family Provider Family Medicine; PCP Family Medicine; Visit Provider Nurse Practitioner Family | DX: Z79.01 Long term (current) use of anticoagulants (principal) | CPT/HCPCS: 85610 ==

== ENCOUNTER → 2020-07-27 09:31 | Outpatient (BNVA) | payer MEDICARE, MEDICAID, SELFPAY | PROVIDERS: Family Provider Family Medicine; PCP Family Medicine; Visit Provider Nurse Practitioner Family | DX: Z79.01 Long term (current) use of anticoagulants (principal) | CPT/HCPCS: 85610 ==

== ENCOUNTER 2022-12-10 14:46 | Emergency (ER) | payer MEDICARE, MEDICAID, SELFPAY ==
[2022-12-10 15:05] VITALS: BP 93/57; PULSE 65; RESP 16; TEMP 36.6; O2SAT 97; BMI 26.9
[2022-12-10 16:04] LABS: Basophils % 0.3 %; Eosinophils % 0.3 %; Hematocrit 40.6 % (37.0-47.0); Hemoglobin 13.6 g/dL (11.5-15.3); Lymphocytes # 1.1 10^3/uL (0.8-4.8); Lymphocytes % 30.3 %; Mean Corpuscular HGB Conc 33.5 g/dL (30.0-36.0); Mean Corpuscular Hemoglobin 29.5 pg (28.0-34.0); Mean Corpuscular Volume 88.1 fl (81-99); Mean Platelet Volume 10.7 fL (7.4-10.4); Monocytes # 0.5 10^3/uL (0.2-0.9); Monocytes % 13.2 %; Neutrophils # 1.98 10^3/uL (1.8-7.7); Neutrophils % 55.6 %; Nucleated Red Blood Cells % 0 %; Platelet Count 131 10^3/cmm (130-400); Red Blood Count 4.61 10^6/uL (4.1-5.3); Red Cell Distribution Width 12.4 % (12.1-15.1); White Blood Count 3.6 10^3/uL (4.0-10.0)
--- NOTE | 2022-12-10 16:12 | ED_ITS ---
HPI - Weakness General: Chief complaint: Weakness Stated complaint: covid+ and possible UTI Time Seen by Provider: 12/10/22 15:59 History of Present Illness: Patient was brought back to room is about to go see her and she left AMA nursing staff attempted to convince her otherwise but she refused she refused to sign out AMA I did not actually see or talk to her. Patient reports she had tested positive for COVID PFS ED PFSH: Medical History Arrhythmia ASCVD (arteriosclerotic cardiovascular disease) Eczema Enrolled in chronic care management Fibrocystic breast Hyperlipidemia Hypertension Iron deficiency anemia Unable to read or write Surgical History (System 06/21/20 @ 15:10 by [place]) History of mitral valve repair Social History (System 06/21/20 @ 15:10 by [place]) Smoking and tobacco status: former smoker Quit status (tobacco): has quit using tobacco Second hand smoke exposure: No Smoking risk assessment/counseling performed?: No Course Vital Signs: Vital signs: Vital Signs Temperature 97.9 F 12/10/22 15:05 Pulse Rate 65 12/10/22 15:05 Respiratory Rate 16 12/10/22 15:05 Blood Pressure 93/57 12/10/22 15:05 Pulse Oximetry 97 12/10/22 15:05 MDM - Weakness Medical Decision Making Labs were ordered from triage these were reviewed no critical findings noted. Patient left without being seen no diagnosis made as it did not not able to get history or examine her Lab Data I reviewed the patient's lab results. 12/10/22 15:40 12/10/22 15:40 Laboratory Results WBC 3.6 10^3/uL (4.0-10.0) L 12/10/22 15:40 RBC 4.61 10^6/uL (4.1-5.3) 12/10/22 15:40 Hgb 13.6 g/dL (11.5-15.3) 12/10/22 15:40 Hct 40.6 % (37.0-47.0) 12/10/22 15:40 MCV 88.1 fl (81-99) 12/10/22 15:40 MCH 29.5 pg (28.0-34.0) 12/10/22 15:40 MCHC 33.5 g/dL (30.0-36.0) 12/10/22 15:40 RDW 12.4 % (12.1-15.1) 12/10/22 15:40 Plt Count 131 10^3/cmm (130-400) 12/10/22 15:40 MPV 10.7 fL (7.4-10.4) H 12/10/22 15:40 Neut % (Auto) 55.6 % 12/10/22 15:40 Lymph % (Auto) 30.3 % 12/10/22 15:40 [place] % (Auto) 13.2 % 12/10/22 15:40 Eos % (Auto) 0.3 % 12/10/22 15:40 Baso % (Auto) 0.3 % 12/10/22 15:40 Neut # (Auto) 1.98 10^3/uL (1.8-7.7) 12/10/22 15:40 Lymph # (Auto) 1.1 10^3/uL (0.8-4.8) 12/10/22 15:40 [place] # (Auto) 0.5 10^3/uL (0.2-0.9) 12/10/22 15:40 Eos # (Auto) 0.0 10^3/uL (0.0-0.8) 12/10/22 15:40 Baso # (Auto) 0.0 10^3/uL (0.0-0.1) 12/10/22 15:40 Nucleated RBC % (auto) 0 % 12/10/22 15:40 Nucleated RBCs # 0.0 /100WBC 12/10/22 15:40 Discharge Plan Discharge Patient Disposition: Left Against Medical Advice Clinical Impression: COVID-19 Prescriptions: No Action cholecalciferol (vitamin D3) 400 unit capsule 400 unit PO BID cyanocobalamin (vitamin B-12) 1,000 mcg capsule 1,000 mcg PO DAILY magnesium oxide 250 mg magnesium tablet 250 mg PO DAILY multivitamin Tablet 1 tab PO DAILY nitroglycerin 0.4 mg tablet, sublingual 0.4 mg SUBLINGUAL Q5M PRN (Reason: chest pain) aspirin 325 mg tablet 325 mg PO DAILY Lactobacillus acidophilus [Acidophilus] Capsule 100 mmu cells PO DAILY ferrous sulfate 325 mg (65 mg iron) tablet 325 mg PO DAILY ezetimibe [Zetia] 10 mg tablet 10 mg PO DAILY lactulose 10 gram/15 mL (15 mL) solution 10 gm PO BID Qty: 1800 3RF lisinopril-hydrochlorothiazide 20-12.5 mg tablet 1 tab PO DAILY Qty: 90 0RF Hold Instructions: Resume on 12/08/19. Hold until seen by primary care triamcinolone acetonide 0.1 % cream 1 applic TOPICAL BID Repatha SureClick 140 mg/mL pen injector SUBCUT Referrals: Berry Laguna DO [Primary Care Provider] - Coding Level of Care Code ED Voice Systems Engineer for Chg Andrey
[2022-12-10 16:19] LABS: Alanine Aminotransferase 26 U/L (0-33); Albumin Level 4.2 g/dL (3.5-5.2); Alkaline Phosphatase 62 U/L (35-105); Blood Urea Nitrogen 29 mg/dL (8-23); Calcium 9.3 mg/dL (8.5-10.5); Carbon Dioxide 26 mmol/L (22-29); Chloride 97 mmol/L (98-107); Glucose 97 mg/dL (65-115); Osmolality Calculated 284 mOsm/kg (285-295); Sodium 134 mmol/L (136-145); Total Bilirubin 0.4 mg/dL (0.15-1.2); Total Protein 6.2 g/dL (6.6-8.7)
[2022-12-10 16:23] LABS: Anion Gap 15.3 (5-19); Aspartate Amino Transferase 40 U/L (0-32); Potassium 4.3 mmol/L (3.5-5.1)
== END 2022-12-10 16:07 | disposition left against medical advice (07) ==
PROVIDERS: Emergency Provider Family Medicine; PCP Family Medicine
DX: U07.1 COVID-19 (principal); Z53.21 Procedure and treatment not carried out due to patient leaving prior to being seen by health care provider; Z79.82 Long term (current) use of aspirin; E78.5 Hyperlipidemia, unspecified; I10 Essential (primary) hypertension; Z87.891 Personal history of nicotine dependence
CPT/HCPCS: 36415; 80053; 85025; 99283

== ENCOUNTER 2023-01-15 23:07 | Emergency (ER) | payer MEDICARE, MEDICAID, SELFPAY ==
[2023-01-15 23:08] VITALS: BMI 25.0
[2023-01-15 23:11] VITALS: BP 129/69; PULSE 71; RESP 18; TEMP 36.8; O2SAT 100
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
== END 2023-01-16 00:27 | disposition home or self-care (01) ==
PROVIDERS: Emergency Provider Emergency Medicine; PCP Family Medicine
DX: S90.01XA Contusion of right ankle, initial encounter (principal); Z79.82 Long term (current) use of aspirin; E78.5 Hyperlipidemia, unspecified; I10 Essential (primary) hypertension; Z87.891 Personal history of nicotine dependence; V89.2XXA Person injured in unspecified motor-vehicle accident, traffic, initial encounter
CPT/HCPCS: 71045; 72072; 73610; 99284

== ENCOUNTER 2023-10-29 11:31 | Emergency (ER) | payer MEDICARE, MEDICAID, SELFPAY ==
--- NOTE | 2023-10-29 11:34 | XRR_ITS ---
PROCEDURE INFORMATION: Exam: XR Chest Exam date and time: 10/29/2023 11:53 AM Age: 73 years old Clinical indication: Pain; Angina pectoris; Additional info: Chest pain TECHNIQUE: Imaging protocol: Radiologic exam of the chest. Views: 1 view. COMPARISON: CR XR chest 1V portable [id number] 01/15/2023 11:26 PM FINDINGS: Lungs: Unremarkable. No consolidation. Pleural spaces: Unremarkable. No pleural effusion. No pneumothorax. Heart/Mediastinum: Valve replacement. Bones/joints: Status post median sternotomy. XR/XR chest 1V portable [id number] IMPRESSION: No acute findings.
--- NOTE | 2023-10-29 11:35 | ECG_ITS ---
[facility] Test Date: 2023-10-29 Pat Name: Dariana Gillespie Department: Room: Gender: Female Client Services Vice President: : 1950 Requested By: Susy Suggs Order Number: [id number] Casie MD: Esteban Lozano M.D. Measurements Intervals [place] Rate: 63 P: 69 UT: 221 QRS: 74 QRSD: 92 T: 30 QT: 444 QTc: 456 Interpretive Statements SINUS RHYTHM WITH FIRST DEGREE AV BLOCK WITH OCCASIONAL SUPRAVENTRICULAR PREMATURE COMPLEXES Compared to ECG 11/26/2019 08:16:51 First degree AV block now present Sinus bradycardia no longer present Prolonged QT interval no longer present Electronically Signed On 10-29-2023 11:50:50 PIPE CLEANING MACHINE OPERATOR by Esteban Lozano M.D. [id number]
[2023-10-29 11:41] VITALS: BP 136/74; PULSE 73; RESP 16; TEMP 36.5; O2SAT 99; BMI 29.1
[2023-10-29 12:06] LABS: Basophils % 0.3 %; Eosinophils # 0.1 10^3/uL (0.0-0.8); Eosinophils % 0.7 %; Hematocrit 40.1 % (36-47); Lymphocytes # 1.1 10^3/uL (0.8-4.8); Lymphocytes % 15.1 %; Mean Corpuscular HGB Conc 34.2 g/dL (30-55); Mean Corpuscular Hemoglobin 30.1 pg (27-33); Mean Corpuscular Volume 88.1 fl (85-98); Mean Platelet Volume 9.9 fL (7.4-10.4); Monocytes # 0.5 10^3/uL (0.2-0.9); Monocytes % 6.8 %; Neutrophils # 5.46 10^3/uL (1.8-7.7); Neutrophils % 76.8 %; Nucleated Red Blood Cells % 0 %; Platelet Count 198 10^3/cmm (157-399); Red Blood Count 4.55 10^6/uL (3.85-5.65)
[2023-10-29 12:29] LABS: Troponin(5th) Baseline 14 ng/L (0-10)
[2023-10-29 12:39] LABS: Alanine Aminotransferase 12 U/L (0-33); Albumin Level 4.4 g/dL (3.5-5.2); Alkaline Phosphatase 80 U/L (35-105); Anion Gap 17.3 (5-19); Aspartate Amino Transferase 19 U/L (0-32); Blood Urea Nitrogen 18 mg/dL (8-23); Calcium 9.5 mg/dL (8.5-10.5); Carbon Dioxide 25 mmol/L (22-29); Chloride 98 mmol/L (98-107); Globulin 2.4 g/dL (1.3-4.6); Glucose 80 mg/dL (65-115); Osmolality Calculated 283 mOsm/kg (285-295); Potassium 4.3 mmol/L (3.5-5.1); Sodium 136 mmol/L (136-145); Total Bilirubin 0.7 mg/dL (0.15-1.2); Total Protein 6.8 g/dL (6.6-8.7)
--- NOTE | 2023-10-29 13:34 | ECG_ITS ---
[facility] Test Date: 2023-10-29 Pat Name: Dariana Gillespie Department: Room: Gender: Female Tube Teller: : 1950 Requested By: Susy Suggs Order Number: [id number] Casie MD: Esteban Lozano M.D. Measurements Intervals [place] Rate: 98 P: 0 IA: 0 QRS: 74 QRSD: 92 T: 27 QT: 393 QTc: 503 Interpretive Statements ATRIAL FIBRILLATION NONSPECIFIC T-WAVE ABNORMALITY Compared to ECG 10/29/2023 11:35:01 T-wave abnormality now present Sinus rhythm no longer present First degree AV block no longer present Electronically Signed On 10-29-2023 13:31:59 ORE STORAGE DRIER by Esteban Lozano M.D. [id number]
--- NOTE | 2023-10-29 13:44 | ED_ITS ---
HPI - Headache 2 General: Chief Complaint: Headache Stated Complaint: chest pain Time Seen by Provider: 10/29/23 13:21 [facility] ED 2 PFSH: Medical History (Updated 01/24/23 @ 00:00 by PERI Davila) Hypertension Enrolled in chronic care management Iron deficiency anemia Unable to read or write Hyperlipidemia ASCVD (arteriosclerotic cardiovascular disease) Arrhythmia Eczema Fibrocystic breast Surgical History History of mitral valve repair Social History Smoking and tobacco/nicotine status: former use of tobacco/nicotine Quit status (tobacco/nicotine): has quit using Second hand smoke exposure: No Course 2 Vital Signs: Vital signs: Vital Signs Temperature 97.7 F 10/29/23 11:41 Pulse Rate 73 10/29/23 11:41 Respiratory Rate 16 10/29/23 11:41 Blood Pressure 136/74 10/29/23 11:41 Pulse Oximetry 99 10/29/23 11:41 Oxygen Delivery Me thod Room Air 10/29/23 11:41 MDM - Headache Lab Data 10/29/23 11:59 10/29/23 11:59 Radiology Impressions Chest X-Ray 10/29/23 11:34 IMPRESSION: No acute findings. Laboratory Results WBC 7.10 10^3/uL (3.29-11.43) 10/29/23 11:59 RBC 4.55 10^6/uL (3.85-5.65) 10/29/23 11:59 Hgb 13.70 g/dL (11.27-16.99) 10/29/23 11:59 Hct 40.1 % (36-47) 10/29/23 11:59 MCV 88.1 fl (85-98) 10/29/23 11:59 MCH 30.1 pg (27-33) 10/29/23 11:59 MCHC 34.2 g/dL (30-55) 10/29/23 11:59 RDW 12.0 % (12.1-15.1) L 10/29/23 11:59 Plt Count 198 10^3/cmm (157-399) 10/29/23 11:59 MPV 9.9 fL (7.4-10.4) 10/29/23 11:59 Neut % (Auto) 76.8 % 10/29/23 11:59 Lymph % (Auto) 15.1 % 10/29/23 11:59 [place] % (Auto) 6.8 % 10/29/23 11:59 Eos % (Auto) 0.7 % 10/29/23 11:59 Baso % (Auto) 0.3 % 10/29/23 11:59 Neut # (Auto) 5.46 10^3/uL (1.8-7.7) 10/29/23 11:59 Lymph # (Auto) 1.1 10^3/uL (0.8-4.8) 10/29/23 11:59 [place] # (Auto) 0.5 10^3/uL (0.2-0.9) 10/29/23 11:59 Eos # (Auto) 0.1 10^3/uL (0.0-0.8) 10/29/23 11:59 Baso # (Auto) 0.0 10^3/uL (0.0-0.1) 10/29/23 11:59 Nucleated RBC % (auto) 0 % 10/29/23 11:59 Nucleated RBCs # 0.0 /100WBC 10/29/23 11:59 Sodium 136 mmol/L (136-145) 10/29/23 11:59 Potassium 4.3 mmol/L (3.5-5.1) 10/29/23 11:59 Chloride 98 mmol/L (98-107) 10/29/23 11:59 Carbon Dioxide 25 mmol/L (22-29) 10/29/23 11:59 Anion Gap 17.3 (5-19) 10/29/23 11:59 BUN 18 mg/dL (8-23) 10/29/23 11:59 Creatinine 0.9 mg/dL (0.5-0.9) 10/29/23 11:59 GFR Calculation Not Reportable 10/29/23 11:59 Glucose 80 mg/dL (65-115) 10/29/23 11:59 Calculated Osmolality 283 mOsm/kg (285-295) L 10/29/23 11:59 Calcium 9.5 mg/dL (8.5-10.5) 10/29/23 11:59 Total Bilirubin 0.7 mg/dL (0.15-1.2) 10/29/23 11:59 AST 19 U/L (0-32) 10/29/23 11:59 ALT 12 U/L (0-33) 10/29/23 11:59 Alkaline Phosphatase 80 U/L (35-105) 10/29/23 11:59 Troponin T Baseline 14 ng/L (0-10) H 10/29/23 11:59 Total Protein 6.8 g/dL (6.6-8.7) 10/29/23 11:59 Albumin 4.4 g/dL (3.5-5.2) 10/29/23 11:59 Globulin 2.4 g/dL (1.3-4.6) 10/29/23 11:59 Discharge Plan Discharge Condition: Stable Prescriptions: No Action cholecalciferol (vitamin D3) 400 unit capsule 400 unit PO BID cyanocobalamin (vitamin B-12) 1,000 mcg capsule 1,000 mcg PO DAILY magnesium oxide 250 mg magnesium tablet 250 mg PO DAILY multivitamin Tablet 1 tab PO DAILY nitroglycerin 0.4 mg tablet, sublingual 0.4 mg SUBLINGUAL Q5M PRN (Reason: chest pain) aspirin 325 mg tablet 325 mg PO DAILY Lactobacillus acidophilus [Acidophilus] Capsule 100 mmu cells PO DAILY ferrous sulfate 325 mg (65 mg iron) tablet 325 mg PO DAILY ezetimibe [Zetia] 10 mg tablet 10 mg PO DAILY lactulose 10 gram/15 mL (15 mL) solution 10 gm PO BID Qty: 1800 3RF lisinopril-hydrochlorothiazide 20-12.5 mg tablet 1 tab PO DAILY Qty: 90 0RF Hold Instructions: Resume on 12/08/19. Hold until seen by primary care triamcinolone acetonide 0.1 % cream 1 applic TOPICAL BID Repatha SureClick 140 mg/mL pen injector SUBCUT methocarbamol 750 mg tablet 750 mg PO Q6H PRN (Reason: spasms) Qty: 20 0RF Naprosyn 500 mg tablet 500 mg PO BID PRN (Reason: pain) Qty: 20 0RF Referrals: Berry Laguna DO [Primary Care Provider] - Coding Level of Care Code ED Photo Finish Photographer for Chg Andrey
--- NOTE | 2023-10-29 13:50 | CT_ITS ---
WS: [id number] CT HEAD TECHNIQUE: Noncontrast CT of the head obtained from the skullbase to the vertex. CLINICAL INFORMATION: headache COMPARISON: CT head 11/26/2019 DLP: 1060.[address] scans at [facility] use at least one of these dose optimization techniques: automated e xposure control; mA and/or kV adjustment per patient size (includes targeted exams where dose is matc hed to clinical indication); or iterative reconstruction. FINDINGS: No evidence of intracranial hemorrhage or mass effect. Ventricular system and basal cisterns are evangelista nt. Mild small vessel changes with moderate parenchymal volume loss. Chronic lacunar infarcts in the cerebellum. 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 Intracranial vascular calcification. No extra-axial fluid collections. No evidence of mass or mas s effect. Paranasal sinuses and mastoid air cells are well aerated. .Normal visualized soft tissues. IMPRESSION: 1. No evidence of intracranial hemorrhage or mass effect. 2. Chronic infarct LEFT occipital and posterior temporal lobes with encephalomalacia unchanged from previous. 3. Mild small vessel changes with moderate parenchymal volume loss. 4. Chronic lacunar infarcts in the cerebellum. 5. No acute intracranial findings.
--- NOTE | 2023-10-29 13:51 | W.ED.ARRPALP ---
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 Headache has been for 7 days and started after a heaving day of cleaning where she had her neck bent down and thinks she may have strained something. Patient reportedly checked in with a complaint of chest pain however in triage she did not complain of this whatsoever and stated the reason for her visit was more for headache however by the time she got back to her room she then began complaining of chest pain again and stating that her heart felt like it was racing. All patient can tell me is that she has a history of mitral valve rupture and that it feels like it is rupturing again and she wants to be transferred to [place] to her upholstery bundler Dr. Pete. Patient refuses to indulge in any information in regards to her PMH or current medications stating you can look it up in my chart or call my pharmacy or call Dr. Juan R Vera MD complaint: rapid heart beat, heart racing and palpitations Onset (ago): day(s) Duration: intermittent Associated symptoms: Reports other (headache); Deny nausea, pre-syncope, syncope or vomiting Review of Systems Const: Denies: fever(s), chills, body aches, fatigue or malaise Eyes: Denies: change in vision or blurry vision Card: Reports: chest pain, palpitations and irregular heart rhythm; Denies: edema, swelling of feet/ankles, lightheadedness, syncope, pre-syncope, dyspnea on exertion, orthopnea, leg pain with exertion or acrocyanosis Resp: Denies: dyspnea, productive cough, non-productive cough, wheezing, pain on inspiration, hemoptysis or chest congestion GI: Denies: abdominal pain, nausea, vomiting, heartburn or diarrhea : Denies: dysuria Musc: Reports: neck pain; Denies: back pain, extremity pain, extremity swelling or joint pain Skin/Breast: Denies: rash Neuro: Reports: headache(s); Denies: numbness in extremities, weakness in extremities, sensory changes or dizziness [facility], [facility] ED PFSH: Medical History (Updated 10/29/23 @ 15:36 by CAROL Laguerre) Hypertension Enrolled in chronic care management Iron deficiency anemia Unable to read or write Hyperlipidemia ASCVD (arteriosclerotic cardiovascular disease) Arrhythmia Eczema Fibrocystic breast Surgical History History of mitral valve repair Social History Smoking and tobacco/nicotine status: former use of tobacco/nicotine Quit status (tobacco/nicotine): has quit using Second hand smoke exposure: No Physical Exam Const: COMMON NORMALS: average body habitus, patient oriented x3, no limitations, healthy appearing, alert and well nourished GENERAL APPEARANCE: cooperative and anxious ORIENTATION/CONSCIOUSNESS: Yes awake, Yes oriented to person, Yes oriented to place and Yes oriented to time HENMT: COMMON NORMALS: normocephalic and atraumatic HEAD & SCALP: normal to inspection, normocephalic and atraumatic FACE & SINUS: normal facial exam Eye: COMMON NORMALS: Equal, round and reactive pupils present and EOMs intact bilaterally GENERAL EYE: appearance normal, both eyes and all related structures and normal light reflex PUPIL: Yes Equal, round and reactive pupils present DIRECT OPHTHALMOSCOPY: Yes normal light reflex Neck/C-Spine: COMMON NORMALS: full ROM GENERAL: Yes normal visual inspection CERVICAL SPINE: Yes Paracervical muscle tenderness right Chest: COMMONS NORMALS: normal inspection of the chest and normal palpation of entire chest wall Resp: COMMON NORMALS: normal respiratory effort and clear to auscultation bilaterally AUSCULTATION: clear to auscultation bilaterally Cardio: RATE: tachycardic RHYTHM: abnormal rhythm irregularly irregular GI: COMMON NORMALS: Normal to inspection, nondistended, normoactive bowel sounds present, Soft to palpation and non-tender PALPATION: Yes Soft to palpation Extremity: COMMON NORMALS: no clubbing, cyanosis or edema, no calf tenderness and no pedal edema GENERAL: Yes normal exam except as noted Neuro: CLARISA COMA SCALE: document GCS findings Clarisa coma scale eye opening: Spontaneous Clarisa coma scale verbal response: Orientated Clarisa coma scale motor response: Obey commands [place] coma scale total score: 15 COMMON NORMALS: patient oriented x3 SENSORIUM/ORIENTATION: Yes alert, Yes oriented to person, Yes oriented to place and Yes oriented to time Skin: COMMON NORMALS: no rashes or lesions noted GENERAL SKIN EXAM: no rashes or lesions noted Course Vital Signs: Vital signs: Vital Signs Temperature 97.7 F 10/29/23 11:41 Pulse Rate 73 10/29/23 11:41 Respiratory Rate 16 10/29/23 11:41 Blood Pressure 136/74 10/29/23 11:41 Pulse Oximetry 99 10/29/23 11:41 Oxygen Delivery Me thod Room Air 10/29/23 11:41 MDM - Arrhythmia/Palpitations Medical Decision Making Patient arrives here with complaints of a headache and atrial fibrillation with RVR. In our system we have no history of patient having atrial fibrillation however based on her medications I believe she probably does have a diagnosis of this. We were able to obtain records from Dr. Pete's office to confirm that. She has had routine follow-up with him as well as routine echocardiograms and it appears that her mitral valve is in good shape. A-fib with RVR most likely caused by her missing all of her morning medications. This was easily controlled with 2 doses of IV Cardizem. Upon reassessment patient feels much better. Her vital signs are stable. Patient's blood work is unremarkable. She has a negative delta troponin. CXR is unremarkable. CT of her head is negative. Recommend follow-up with Dr. Pete. Return to ED precautions given. Lab Data 10/29/23 11:59 10/29/23 11:59 Radiology Impressions Chest X-Ray 10/29/23 11:34 IMPRESSION: No acute findings. Laboratory Results WBC 7.10 10^3/uL (3.29-11.43) 10/29/23 11:59 RBC 4.55 10^6/uL (3.85-5.65) 10/29/23 11:59 Hgb 13.70 g/dL (11.27-16.99) 10/29/23 11:59 Hct 40.1 % (36-47) 10/29/23 11:59 MCV 88.1 fl (85-98) 10/29/23 11:59 MCH 30.1 pg (27-33) 10/29/23 11:59 MCHC 34.2 g/dL (30-55) 10/29/23 11:59 RDW 12.0 % (12.1-15.1) L 10/29/23 11:59 Plt Count 198 10^3/cmm (157-399) 10/29/23 11:59 MPV 9.9 fL (7.4-10.4) 10/29/23 11:59 Neut % (Auto) 76.8 % 10/29/23 11:59 Lymph % (Auto) 15.1 % 10/29/23 11:59 [place] % (Auto) 6.8 % 10/29/23 11:59 Eos % (Auto) 0.7 % 10/29/23 11:59 Baso % (Auto) 0.3 % 10/29/23 11:59 Neut # (Auto) 5.46 10^3/uL (1.8-7.7) 10/29/23 11:59 Lymph # (Auto) 1.1 10^3/uL (0.8-4.8) 10/29/23 11:59 [place] # (Auto) 0.5 10^3/uL (0.2-0.9) 10/29/23 11:59 Eos # (Auto) 0.1 10^3/uL (0.0-0.8) 10/29/23 11:59 Baso # (Auto) 0.0 10^3/uL (0.0-0.1) 10/29/23 11:59 Nucleated RBC % (auto) 0 % 10/29/23 11:59 Nucleated RBCs # 0.0 /100WBC 10/29/23 11:59 Sodium 136 mmol/L (136-145) 10/29/23 11:59 Potassium 4.3 mmol/L (3.5-5.1) 10/29/23 11:59 Chloride 98 mmol/L (98-107) 10/29/23 11:59 Carbon Dioxide 25 mmol/L (22-29) 10/29/23 11:59 Anion Gap 17.3 (5-19) 10/29/23 11:59 BUN 18 mg/dL (8-23) 10/29/23 11:59 Creatinine 0.9 mg/dL (0.5-0.9) 10/29/23 11:59 GFR Calculation Not Reportable 10/29/23 11:59 Glucose 80 mg/dL (65-115) 10/29/23 11:59 Calculated Osmolality 283 mOsm/kg (285-295) L 10/29/23 11:59 Calcium 9.5 mg/dL (8.5-10.5) 10/29/23 11:59 Total Bilirubin 0.7 mg/dL (0.15-1.2) 10/29/23 11:59 AST 19 U/L (0-32) 10/29/23 11:59 ALT 12 U/L (0-33) 10/29/23 11:59 Alkaline Phosphatase 80 U/L (35-105) 10/29/23 11:59 Troponin T Baseline 14 ng/L (0-10) H 10/29/23 11:59 Troponin T 120 Minute 12.32 ng/L (0-10) H 10/29/23 13:51 Delta Troponin T -1.68 ABS# (0-10) L 10/29/23 13:51 NT-Pro-B Natriuret Pep 702 pg/mL (0-125) H 10/29/23 11:59 Total Protein 6.8 g/dL (6.6-8.7) 10/29/23 11:59 Albumin 4.4 g/dL (3.5-5.2) 10/29/23 11:59 Globulin 2.4 g/dL (1.3-4.6) 10/29/23 11:59 All radiology interpretation(s) finalized by discharge Discharge Plan Discharge Patient Disposition: Home Clinical Impression: Atrial fibrillation with rapid ventricular response Headache Qualifiers: Headache type: unspecified Headache chronicity pattern: acute headache Intractability: not intractable Qualified Code(s): R51.9 - Headache, unspecified Condition: Stable Prescriptions: No Action cholecalciferol (vitamin D3) 400 unit capsule 400 unit PO BID cyanocobalamin (vitamin B-12) 1,000 mcg capsule 1,000 mcg PO DAILY magnesium oxide 250 mg magnesium tablet 250 mg PO DAILY multivitamin Tablet 1 tab PO BID aspirin 325 mg tablet 325 mg PO QAM ferrous sulfate 325 mg (65 mg iron) tablet 325 mg PO DAILY ezetimibe [Zetia] 10 mg tablet 10 mg PO QAM naproxen [Naprosyn] 500 mg tablet 500 mg PO BID PRN (Reason: pain) Qty: 20 0RF carvedilol 6.25 mg tablet 6.25 mg PO BID amlodipine 2.5 mg tablet 2.5 mg PO QAM Nitrostat 0.4 mg Tablet, Sublingual 0.4 mg SUBLINGUAL Q5M PRN (Reason: Chest Pain) Rx Instructions: do not exceed 3 doses per episode Eliquis 5 mg tablet 5 mg PO BID Repatha SureClick 140 mg/mL pen injector 140 mg SUBCUT Q14D Probiotic Blend 2 billion cell-50 mg Capsule 1 cap PO DAILY Rx Instructions: give with meal/snack lisinopril-hydrochlorothiazide 20-12.5 mg tablet 1 tab PO QAM Discharge Orders: Discharge ED (Routine); Ordered 10/29/23 Ordered By: Susy Suggs Referrals: Berry Laguna DO [Primary Care Provider] - Activity Restrictions/Additional Instructions: As we discussed you need to continue all of your medications as prescribed. Please contact your upholstery bundler/Dr. Pete's office today and schedule a follow-up visit. You may follow-up with your primary care provider for continued headaches. You need to return to the emergency department for severe shortness of breath or difficulty breathing, palpitations/racing heart rate, worsening headache, visual changes, passing out episodes, severe lightheadedness or dizziness, or any other concerns you may have. Coding Level of Care Code ED Continuous Weld Pipe Mill Supervisor for Simi Balderas
[2023-10-29] MEDS: dilTIAZem 5 mg/mL SDV 5 mL 10 MG IVP ×2 (14:23→14:43)
[2023-10-29 14:29] LABS: Troponin 5 2HR 12.32 ng/L (0-10)
[2023-10-29 14:30] LABS: Troponin 5 2HR Delta -1.68 ABS# (0-10)
[2023-10-29 14:43] LABS: NT Pro B Type Natriuretic Pept 702 pg/mL (0-125)
[2023-10-29] MEDS: carvedilol 6.25 mg Tablet PO (14:43)
--- NOTE | 2023-10-29 17:34 | ECG_ITS ---
[facility] Test Date: 2023-10-29 Pat Name: Dariana Gillespie Department: Room: Gender: Female Managed Services Consultant: : 1950 Requested By: Susy Suggs Order Number: [id number] Casie MD: Esteban Lozano M.D. Measurements Intervals [place] Rate: 130 P: 0 [place]: 0 QRS: 78 QRSD: 88 T: 43 QT: 334 QTc: 492 Interpretive Statements ATRIAL FIBRILLATION WITH RAPID VENTRICULAR RESPONSE NONSPECIFIC ST & T-WAVE ABNORMALITY ABNORMAL RHYTHM ECG Compared to ECG 10/29/2023 13:23:12 No significant changes Electronically Signed On 10-29-2023 16:33:56 HUMAN FACTORS ERGONOMIST by Esteban Lozano M.D. [id number]
== END 2023-10-29 16:00 | disposition home or self-care (01) ==
PROVIDERS: Emergency Provider Physician Assistant; PCP Family Medicine
DX: I48.20 Chronic atrial fibrillation, unspecified (principal); R51.9 Headache, unspecified; Z79.82 Long term (current) use of aspirin; Z79.01 Long term (current) use of anticoagulants; I10 Essential (primary) hypertension; E78.5 Hyperlipidemia, unspecified; Z87.891 Personal history of nicotine dependence
CPT/HCPCS: 36415; 70450; 71045; 80053; 83880; 84484; 85025; 93005; 96374; 96376; 99285; J3490

== ENCOUNTER 2024-03-18 14:10 | Emergency (ER) | payer MEDICARE, MEDICAID, SELFPAY ==
--- NOTE | 2024-03-18 14:10 | ECG_ITS ---
[facility] Test Date: 2024-03-18 Pat Name: Dariana Gillespie Department: Room: Gender: Female Stone Rigger: : 1950 Requested By: Raúl Escoto Order Number: [id number] Casie MD: Esteban Lozano M.D. Measurements Intervals [place] Rate: 73 P: 0 [place]: 0 QRS: 83 QRSD: 100 T: 65 QT: 406 QTc: 450 Interpretive Statements ATRIAL FIBRILLATION MINIMAL ST DEPRESSION [0.025+ mV ST DEPRESSION] Compared to ECG 10/29/2023 13:51:33 ST (T wave) deviation now present T-wave abnormality no longer present Electronically Signed On 03-18-2024 17:11:05 CDT by Esteban Lozano M.D. [email or web address]
[2024-03-18 14:11] VITALS: BP 109/65; PULSE 75; RESP 16; TEMP 36.7; O2SAT 98
== END 2024-03-18 14:42 | disposition left against medical advice (07) ==
PROVIDERS: Emergency Provider Family Medicine; PCP Family Medicine
DX: Z53.21 Procedure and treatment not carried out due to patient leaving prior to being seen by health care provider (principal)
CPT/HCPCS: 93005